=== PATIENT | male | born 1950 | race Caucasian/White ===

== ENCOUNTER 2017-05-29 10:10 | Inpatient (IN) | payer OTHER, MEDICARE ==
[2017-05-02 08:53] VITALS: Ht 177.8 cm; Wt 118.8 kg
--- NOTE | 2017-05-02 09:28 | PAT Medication Instructions ---
Service Date May 02, 2017. Current Home Medication List Aspirin (Aspirin Ec), 81 MG PO QAM Atorvastatin (Lipitor), 40 MG PO QAM Carvedilol (Carvedilol), 1 TAB PO BID Cholecalciferol (Vitamin D3), 1 CAP PO QAM Coenzyme Q10 (Ubidecarenone) (Co Q 10), 1 CAP PO BID Enalapril (Vasotec), 10 MG PO QAM Fish Oil (Bonifay-3), 1 CAP PO QAM Levothyroxine Sodium (Levothyroxine Sodium), 1 TAB PO QAM Nitroglycerin (Nitrostat), 0.4 MG UT PRN Ranitidine (Zantac), 300 MG PO BID Sennosides-Docusate Sodium (Stool Softener), 1 TAB PO BID Medication Instructions For Your Scheduled Surgery -Continue as directed: Nitroglycerin (Nitrostat), 0.4 MG UT PRN - Hold the following medications 2 weeks prior to surgery: Fish Oil (Bonifay-3), 1 CAP PO QAM Coenzyme Q10 (Ubidecarenone) (Co Q 10), 1 CAP PO BID - Hold the following medications the morning of surgery: Sennosides-Docusate Sodium (Stool Softener), 1 TAB PO BID Enalapril (Vasotec), 10 MG PO QAM Cholecalciferol (Vitamin D3), 1 CAP PO QAM - Take the following medications the morning of surgery with a sip of water: Ranitidine (Zantac), 300 MG PO BID Levothyroxine Sodium (Levothyroxine Sodium), 1 TAB PO QAM Carvedilol (Carvedilol), 1 TAB PO BID Aspirin (Aspirin Ec), 81 MG PO QAM Atorvastatin (Lipitor), 40 MG PO QAM - Take the following medications as scheduled the night before surgery: Ranitidine (Zantac), 300 MG PO BID Carvedilol (Carvedilol), 1 TAB PO BID Sennosides-Docusate Sodium (Stool Softener), 1 TAB PO BID If you have any questions please call us at [phone] or [phone] or [phone]
--- NOTE | 2017-05-02 10:05 | DIAGNOSTIC IMAGING REPORT ---
CHEST PREADMISSION(PA/LAT) CLINICAL HISTORY: PAT preoperative evaluation COMPARISON STUDY: No previous studies for comparison. FINDINGS: Mild cardiomegaly. Prior median sternotomy. Lungs are clear. Diaphragms smooth. IMPRESSION: Mild cardiomegaly. Otherwise negative study. The above report was generated using voice recognition software. It may contain grammatical, syntax or spelling errors. Electronically signed by: Viet Boston M.D. 05/02/2017 10:04 AM Dictated Date/Time: 05/02/2017 10:03 AM
[2017-05-02 10:47] LABS: PARTIAL THROMBOPLASTIN RATIO 1.2; PROTHROMBIN TIME (PATIENT) 10.2 SECONDS (9.0-12.0)
--- NOTE | 2017-05-25 23:13 | HISTORY & PHYSICAL EXAMINATION ---
DATE OF ADMISSION: 05/29/2017 CHIEF COMPLAINT: Bilateral knee pain and discomfort, left side greater than right. HISTORY OF PRESENT ILLNESS: A 66-year-old male who has had a long history of bilateral knee problems. He presents for surgical treatment of his knees. He said both of his knee scoped [address]hillon [address] Paulino in the past. He was actually scheduled to have knees replaced years ago and they found some heart disease on his workup and had 3-vessel bypass done in [place]. He has done well from this. He is currently asymptomatic from the cardiac standpoint and would like to proceed with a knee surgery. The left knee bothers him more than the right. He has constant pain. He has limited walking tolerance. The more he walks, the more it hurts. Pretty much limps all day long. PAST MEDICAL HISTORY: 1. Hypertension. 2. Elevated cholesterol. 3. Coronary artery disease, status post 3-vessel bypass 04/06/2016 at [place] at [facility]. 4. Hiatal hernia. 5. Hypothyroidism. PAST SURGICAL HISTORY: 1. Bilateral knee scopes in the past. 2. Shoulder surgery. 3. Right ankle arthrodesis for post-traumatic DJD. 4. Eye surgery. 5. Coronary bypass surgery x3 on 04/06/2016. ALLERGIES: None. CURRENT MEDICINES: 1. Aspirin 81 mg. 2. Atorvastatin 40 mg. 3. Enalapril 10 mg. 4. Levothyroxine 50 mcg a day. 5. Vitamin D3 5000 international units a day. 6. Carvedilol 6.25 mg a day. 7. Ranitidine 300 mg a day. 8. Aleve p.r.n.. 9. Docusate sodium 250 mg p.r.n. 10. Nitrostat p.r.n. SOCIAL HISTORY: A 66-year-old male patient from [place]. He is . One drink per day. FAMILY HISTORY: Negative for blood clots or heart disease. REVIEW OF SYSTEMS: Significant for his heart history. He has recently been seen by his educational resource coordinator Dr. Carlin Sharma at [facility] and cleared for surgery. Denies any current chest pain or any shortness of breath. No history of DVT or PE. He is on aspirin. PHYSICAL EXAMINATION: GENERAL: Reveals a healthy, pleasant, middle-aged male. He looks in pretty good health. HEENT: Benign. NECK: Supple. No lymphadenopathy. LUNGS: Clear to auscultation. HEART: Has a regular rate and rhythm. ABDOMEN: Soft, nontender, nondistended. EXTREMITIES: Grossly neurovascularly intact except as follows. Examination of both knees reveals the patient walks with a waddling gait. He has varus alignment to both knees. He has varus thrust with weightbearing on both sides. He has small knee effusion. Tender over the medial joint line bilaterally. Range of motion is pretty symmetrically at about 5 degrees short of full extension and 125 degrees of flexion. No instability. No pain with hip motion. X-RAYS: X-rays of both knees reveal advanced bilateral knee DJD. He has complete loss of his medial joint space. X-ray films are pretty similar on both sides. He has subchondral sclerosis. ASSESSMENT: A 66-year-old male with a history of knee arthroscopy in the past in both knees with advanced bilateral knee degenerative joint disease, left side more symptomatic than the right. He does have a history of bypass surgery over a year ago and has done well from this and currently asymptomatic. He would like to have his left knee replaced. He has been cleared by his educational resource coordinator. PLAN: We are going to take him to the operating room and do a left total knee replacement. The risks and benefits of this procedure were explained to the patient including but not limited to DVT, PE, , infection, neurologic injury, vascular injury, bleeding problems, pain, limited range of motion, stiffness, failure to relieve symptoms, incomplete relief of symptoms, need for further surgery in the future, fracture, leg length inequality, nerve palsy, etc. The patient understands and desires to proceed. Informed consent was obtained. We did talk to him about holding his enalapril the morning of surgery and he should take his carvedilol/beta anthony. He can continue on the baby aspirin.
[2017-05-29] VITALS (7 sets, daily range): BP systolic 129–163; BP diastolic 73–91; PULSE 74–84; TEMP 36.3–36.7; O2SAT 93–97
[~2017-05-29] VITALS: Ht 177.8 cm; Wt 118.8 kg
[~2017-05-29 10:10] MED LIST: ACETAMINOPHEN 500 MG TAB PO SCH; ASPI81TA28 PO; ATOR-24 PO; BUPIVACAINE 0.25% 30 ML VIAL ONE; BUPIVACAINE 0.5 % 5 MG/1 ML PF 10ML VIAL ONE; BUPIVACAINE LIPOSOME 266 MG, BUPIVACAINE/EPINEPHRINE INJ 50 ML, SODIUM CHLORIDE 0.9% PF... INFIL SCH; CARV12.52 PO; CEFAZOLIN 3000MG IV PUSH 15 ML IV SCH; CHOLCAP5 PO; COEN1CAP17 PO; DEXAMETHASONE SOD INJ 4 MG/ML VIAL ONE; ENAL10TA88 PO; EpINEphrine INJ 1MG/ML AMP 1 MG/ML AMP ONE; FAMOTIDINE 20 MG TAB PO SCH; GABAPENTIN 300 MG CAP PO SCH; LACTATED RINGER'S 1000ML IV SCH; LACTATED RINGER'S 500 ML IV SCH; LEVO50TA6 PO; METOCLOPRAMIDE HCL 10 MG TAB PO SCH; NTRGSL/4 UT; OMEG10007 PO; RANI300T2 PO; SCOPOLAMINE 1.5 MG TDSY TD SCH; SENNTAB23 PO; TRANEXAMIC ACID INJ 1,000 MG in SYRINGE 0 ML IV SCH
--- NOTE | 2017-05-29 10:50 | History & Physical Bridge Note ---
H&P Re-Evaluation Bridge Note: I have examined the patient, reviewed the History & Physical and in the interval since the performance of the History & Physical I have noted the following changes of clinical significance: No changes noted
[2017-05-29] MEDS ORDERED: MIDAZOLAM HCL 1 MG/ML 2ML VIAL ONE (12:06)
[2017-05-29] MEDS ORDERED: FENTANYL CITRATE INJ 50 MCG/1 ML 2 ML VIAL ONE (12:06)
[2017-05-29] MEDS ORDERED: EpHEDrine SULFATE INJ 50 MG/ML AMP IV PRN (12:45)
[2017-05-29] MEDS ORDERED: ONDANSETRON INJ 2 MG/ML 2 ML VIAL IV PRN ×2 (12:45→15:45)
[2017-05-29] MEDS ORDERED: FENTANYL CITRATE INJ 50 MCG/1 ML 2 ML VIAL IV PRN (12:45)
[2017-05-29] MEDS ORDERED: ATROPINE SULFATE 0.1 MG/ML 5ML SYR IV PRN (12:45)
[2017-05-29] MEDS ORDERED: BACITRACIN 50000 UNIT VIAL ONE (13:07)
[2017-05-29] MEDS ORDERED: SODIUM CHLORIDE 0.9% PF 50 ML VIAL ONE (13:07)
[2017-05-29] MEDS ORDERED: BUPIVACAINE/EPINEPHRINE 0.25% 1:200,000 30 ML VIAL ONE (13:07)
[2017-05-29] MEDS ORDERED: BUPIVACAINE LIPOSOME 1/3% 266 MG/20 ML VIAL INFIL ONE (13:07)
[2017-05-29] MEDS ORDERED: PROPOFOL IV EMULSION 10 MG/ML 20 ML VIAL IV ONE ×2 (14:25→14:26)
--- NOTE | 2017-05-29 15:32 | [facility] Post Operative Brief Note ---
Immediate Operative Summary Operative Date May 29, 2017. Pre-Operative Diagnosis Advanced Left Knee Degenerative Joint Disease Post-Operative Diagnosis Advanced Left Knee Degenerative Joint Disease Procedure(s) Performed Left Total Knee Arthroplasty Surgeon Dr. Montilla Adult Secondary Education Instructor Surgeon(s) MACIEJ Vinson Estimated Blood Loss 50 mL Findings Left Knee DJD Fluids (cc crystalloids) 1800cc Specimens A. Left Knee Bone and Tissue Drains None Anesthesia Spinal Complication(s) None Disposition Recovery Room / PACU
[2017-05-29] MEDS ORDERED: METOCLOPRAMIDE HCL INJ 5 MG/ML 2 ML VIAL IV PRN (15:45)
[2017-05-29] MEDS ORDERED: MAGNESIUM HYDROXIDE SUSP 30 ML UDC PO PRN (15:45)
[2017-05-29] MEDS ORDERED: NITROGLYCERIN 0.4 MG SL PER TAB CHARGE UT PRN (15:45)
[2017-05-29] MEDS ORDERED: HYDROmorphone INJ 0.5 MG/0.5 ML SYR IV PRN (15:45)
[2017-05-29] MEDS ORDERED: BISACODYL 10 MG SUPP PR PRN (15:45)
[2017-05-29] MEDS ORDERED: SILVER SULFADIAZINE 1% CR 50 GM JAR EXT PRN (15:45)
[2017-05-29] MEDS ORDERED: TRANEXAMIC ACID INJ 1,000 MG in SODIUM CHLORIDE 0.9% 100ML 100 ML IV SCH (15:45)
[2017-05-29] MEDS ORDERED: OXYCODONE HCL IR 5 MG TAB (IMMEDIATE RELEASE) PO PRN (15:45)
[2017-05-29] MEDS ORDERED: ZOLPIDEM TARTRATE 5 MG TAB PO PRN (15:45)
[2017-05-29] MEDS ORDERED: ALUMINUM/MAGNESIUM/SIMETH (MAALOX MAX) 30 ML UDC PO PRN (15:45)
[2017-05-29] MEDS ORDERED: TAMSULOSIN HCL 0.4 MG CAP PO PRN (15:45)
[2017-05-29] MEDS: CHECK SCOPOLAMINE PATCH PLACEMENT SCH ×2 (16:00→23:47)
--- NOTE | 2017-05-29 16:02 | DIAGNOSTIC IMAGING REPORT ---
L KNEE 1 OR 2 VIEWS ROUTINE CLINICAL HISTORY: AP/LATERAL IN PACU LEFT KNEE joint replacement COMPARISON: None. DISCUSSION: Total left knee arthroplasty. Good contact between prosthetic and underlying bone. Surgical drains are in position. Expected soft tissue postoperative change IMPRESSION: Anatomic alignment status post total left knee arthroplasty The above report was generated using voice recognition software. It may contain grammatical, syntax or spelling errors. Electronically signed by: Viet Boston M.D. 05/29/2017 4:01 PM Dictated Date/Time: 05/29/2017 4:00 PM
--- NOTE | 2017-05-29 16:03 | Anesthesiology Progress Note ---
Anesthesia Post Op Note Date & Time May 29, 2017 at 16:03 Vital Signs Pain Intensity: 0 Vital Signs Past 12 Hours Date Time Temp Pulse Resp B/P (MAP) Pulse Ox O2 Delivery O2 Flow Rate FiO2 05/29/17 16:00 36.7 05/29/17 15:51 134/68 05/29/17 15:48 79 16 98 05/29/17 15:48 78 16 05/29/17 15:46 141/77 05/29/17 15:43 76 15 05/29/17 15:43 76 15 98 05/29/17 15:41 140/80 05/29/17 15:38 80 15 05/29/17 15:38 84 15 100 05/29/17 15:36 123/98 05/29/17 15:34 127/74 05/29/17 15:33 36.6 77 16 127/74 97 Nasal Cannula 2 05/29/17 15:33 78 05/29/17 15:33 78 98 05/29/17 10:58 36.5 79 18 163/91 97 Room Air Notes Mental Status: alert / awake / arousable, participated in evaluation Pt Amnestic to Procedure: Yes Nausea / Vomiting: adequately controlled Pain: adequately controlled Airway Patency, RR, SpO2: stable & adequate BP & HR: stable & adequate Hydration State: stable & adequate Neuraxial Anesthesia: was administered, sensory block is resolving Anesthetic Complications: no major complications apparent
[2017-05-29] MEDS: D5W AND 1/2NSS + 20MEQ KCL 1,000 ML IV SCH (17:36)
[2017-05-29] MEDS: KETOROLAC TROMETHAMINE 15 MG/ML VIAL IV. SCH ×2 (17:51→23:47)
[2017-05-29] MEDS: FERROUS GLUCONATE 324 MG TAB PO SCH (17:52)
[2017-05-29] MEDS: CARVEDILOL 12.5 MG TAB PO SCH (20:55)
[2017-05-29] MEDS: TAPENTADOL ER 50 MG TABCR PO SCH (20:55)
[2017-05-29] MEDS: ASPIRIN 325 MG ECTAB PO SCH (20:55)
[2017-05-29] MEDS: DOCUSATE SODIUM/SENNA 50/8.6MG TAB PO SCH (20:56)
[2017-05-29] MEDS: RANITIDINE HCL 150 MG TAB PO SCH (20:56)
[2017-05-29] MEDS ORDERED: NON-FORMULARY MEDICATION (Coenzyme Q10 (Ubidecarenone) (Co Q 10) 1 CAP) PO SCH (21:00)
[2017-05-29] MEDS ORDERED: DOCUSATE SODIUM 100 MG CAP PO SCH (21:00)
[2017-05-29] MEDS ORDERED: SENNA 8.6 MG TAB PO SCH (21:00)
[2017-05-29] MEDS ORDERED: TRANEXAMIC ACID INJ 1,000 MG in SYRINGE 0 ML IV SCH (22:00)
[2017-05-29] MEDS: CEFAZOLIN IV 2,000 MG in SYRINGE 0 ML IV SCH (22:07)
[2017-05-29] MEDS: ACETAMINOPHEN 500 MG TAB PO SCH (22:08)
--- NOTE | 2017-05-29 22:58 | OPERATIVE REPORT ---
DATE OF OPERATION: 05/29/2017 SURGEON: Cale Montilla MD. PAINTER DRUM: MACIEJ Paul. PREOPERATIVE DIAGNOSIS: Left knee degenerative joint disease. POSTOPERATIVE DIAGNOSIS: Same. PROCEDURE PERFORMED: Left cemented posterior stabilized total knee arthroplasty. COMPLICATIONS: None. ESTIMATED BLOOD LOSS: 50 mL. FLUID REPLACEMENT: 1800 mL crystalloid fluid replacement. TOURNIQUET TIME: 64 minutes at 300 mmHg. ANESTHESIA: Spinal with adductor canal block. DRAINS: None. SPECIMENS: Left knee sent for pathology. OPERATIVE INDICATIONS: The patient is a 66-year-old very active gentleman who has had a long history of bilateral knee pain and discomfort. He has been through extensive conservative care elsewhere. He has had both of his knees scoped in the past by other physicians. Over the years, he developed increased pain and discomfort, unresponsive to conservative care. The left knee is bothered more than the right. He would like to proceed with operative treatment. OPERATIVE FINDINGS: Operative findings revealed advanced left knee DJD. He had extensive grade 4 changes of the medial femoral condyle and medial tibial plateau. He had a varus deformity to his knee. He had a large knee joint effusion. OPERATIVE IMPLANTS: Operative implants consisted of: 1. Biomet Vanguard size 72.5 left posterior stabilized femoral component. 2. Biomet size 79 tibial tray. 3. A 12 mm posterior stabilized polyethylene insert. 4. A 34 x 8.5 all poly patella. OPERATIVE PROCEDURE: The patient taken to the operating room, identified and placed on the operating table in supine position. All contact areas were appropriately padded. IV antibiotics were provided by anesthesia team. A spinal anesthetic and adductor canal block had been provided in the holding area. Taylor catheter was placed in sterile fashion. A left thigh tourniquet was then placed and left lower extremity was then prepped and draped in the usual sterile fashion. Left leg was elevated and exsanguinated with Esmarch and tourniquet was placed at 300 mmHg. An anterior approach of the left knee was then performed through a longitudinal incision centered over the patella. Sharp dissection was carried out through the subcutaneous tissues down to the level of the extensor mechanism. Medial parapatellar arthrotomy incision was made. Some subperiosteal dissection was carried out medially. The fat pad was resected from beneath the patellar tendon. The lateral patellofemoral ligament was released. The patella was everted, and the knee was flexed. The osteophytes were taken off the distal femur. The ACL and PCL were then released from the distal femur and the tibia subluxated anteriorly. The external tibial alignment jig was then placed in the anterior face of the tibia and adjusted 14 mm medially. Proximal tibia cut was made to remove about 1 mm or 2 of bone from the most deficient aspect of the medial tibial plateau. Some osteophytes were taken off medial and posteromedially. Tibia was sized to a size 79. Attention was then drawn to the femur. The distal femur was entered with a sharp drill. Intramedullary canal was suctioned. A left 6-degree valgus cutting guide was placed. Distal femoral cutting block was pinned in place. Distal femoral cut was made to take an additional 3 mm of bone off the distal femur. The femur was then sized to a size 72.5. We did downsize this slightly. The AP cutting block was pinned parallel to the epicondylar axis, which was 3 degrees of external rotation. The anterior cut, anterior chamfer cut, posterior cut, posterior chamfer cuts were made. Box cutting guide was placed and adjusted slightly lateral and the box cut was made. The knee was flexed. The remnants of the medial and lateral meniscus were excised. The osteophytes were taken off the posterior aspect of the femur. A trial femoral component was placed. Tibial tray was pinned in maximum external rotation and drill and stem punch were used to create defect in the proximal tibia for the tibial tray. The knee was then trialed and the 12 mm insert fit most appropriately. Attention was then drawn to the patella. The patella was cleaned of all soft tissues. Patella thickness measured 21 mm and was cut down to 13. It was sized to a size 34 patella. Lug holes were drilled for a 34 patella. Lateral osteophyte was removed. Patella button was placed. Knee was taken through range of motion and the patella tracked nicely with no thumbs test. Attention was then drawn toward placement of the permanent components. All trial components were removed. Bone plug was placed in the distal femur to limit blood loss. A double batch of Palacos G cement was mixed. A left size 72.5 posterior stabilized femoral component, size 79 tibial tray, a 12 mm posterior stabilized polyethylene insert, and a 34 x 8.5 all poly patella were then cemented in place. Knee was brought out into full extension until cement hardened. A final cement check was then performed. The patient did receive 1 gram of tranexamic acid. I did inject locally with 100 mL of a combination of 20 mL of Exparel, 30 mL of normal saline, and 50 mL of 0.25% Marcaine with epinephrine. The tourniquet was then let down for a tourniquet time 64 minutes. Hemostasis was assured with use of electrocautery. The extensor mechanism was then closed with a combination of #1 PDS suture and #1 Vicryl suture in a [id number] fashion. Extensor mechanism was checked and found to be intact. Subcutaneous tissues were then closed with 2-0 Dexon suture in a buried interrupted fashion. Skin was closed with skin naila. The leg was then cleaned and dried and a sterile dressing of Xeroform, 4 x 4, sterile cast padding and an Richard bandage were applied. The patient transferred to the recovery room in stable condition. The patient tolerated the procedure without complications. All needle and sponge counts were correct at the end of the operation. I attest to the content of the Intraoperative Record and any orders documented therein. Any exception s are noted below.
[2017-05-30] VITALS (9 sets, daily range): BP systolic 112–151; BP diastolic 72–91; PULSE 72–111; TEMP 36.3–37.2; O2SAT 93–96
[2017-05-30] MEDS: D5W AND 1/2NSS + 20MEQ KCL 1,000 ML IV SCH ×2 (03:15→12:18)
[2017-05-30] MEDS: LEVOTHYROXINE 50 MCG TAB PO SCH (05:55)
[2017-05-30] MEDS: ACETAMINOPHEN 500 MG TAB PO SCH ×3 (05:55→20:54)
[2017-05-30] MEDS: KETOROLAC TROMETHAMINE 15 MG/ML VIAL IV. SCH ×2 (05:55→12:18)
[2017-05-30] MEDS: CEFAZOLIN IV 2,000 MG in SYRINGE 0 ML IV SCH (05:56)
[2017-05-30 07:18] LABS: HEMATOCRIT 36.3 % (42-52); MEAN CELL VOLUME 92.4 fL (80-100); MEAN CORPUSCULAR HEMOGLOBIN 31.6 pg (25-34); MEAN CORPUSCULAR HGB CONC 34.2 g/dl (32-36); MEAN PLATELET VOLUME 10.3 fL (7.4-10.4); PLATELET COUNT 156 K/uL (130-400); RED BLOOD COUNT 3.93 M/uL (4.7-6.1)
[2017-05-30 07:52] LABS: BUN/CREATININE RATIO 15.9 (10-20); CALCIUM 8.2 mg/dl (8.5-10.1); CREATININE 1.57 mg/dl (0.60-1.40); POTASSIUM 4.4 mmol/L (3.5-5.1)
[2017-05-30] MEDS: CHECK SCOPOLAMINE PATCH PLACEMENT SCH ×2 (08:11→15:52)
[2017-05-30] MEDS: RANITIDINE HCL 150 MG TAB PO SCH ×2 (08:52→20:54)
[2017-05-30] MEDS: FERROUS GLUCONATE 324 MG TAB PO SCH ×3 (08:52→17:44)
[2017-05-30] MEDS: DOCUSATE SODIUM/SENNA 50/8.6MG TAB PO SCH ×2 (08:52→20:54)
[2017-05-30] MEDS: MULTIVITAMIN TAB PO SCH (08:52)
[2017-05-30] MEDS: CARVEDILOL 12.5 MG TAB PO SCH ×2 (08:52→20:55)
[2017-05-30] MEDS: ASPIRIN 325 MG ECTAB PO SCH ×2 (08:52→20:54)
[2017-05-30] MEDS: PANTOprazole SOD 40 MG TAB PO SCH (08:53)
[2017-05-30] MEDS: ENALAPRIL MALEATE 10 MG TAB PO SCH (08:53)
[2017-05-30] MEDS: ATORVASTATIN 40 MG TAB PO SCH (08:53)
[2017-05-30] MEDS: CHOLECALCIFEROL 1000 INTER.UNIT TAB PO SCH (08:54)
[2017-05-30] MEDS: TAPENTADOL ER 50 MG TABCR PO SCH ×2 (08:57→20:55)
--- NOTE | 2017-05-30 13:26 | PROGRESS NOTE ---
DATE: 05/30/2017 SUBJECTIVE: A 66-year-old gentleman postop day #1 from a left knee replacement. He is doing well. Pain has been controlled. No chest pain or shortness of breath. Not feeling dizzy or lightheaded. OBJECTIVE: VITAL SIGNS: Temperature 36.5. Vital signs stable. GENERAL: Physical examination reveals a pleasant, middle-aged male. He is sitting up at his bedside chair and looks pretty comfortable. LUNGS: Clear to auscultation. HEART: Regular rate and rhythm. ABDOMEN: Soft, nontender, and nondistended. EXTREMITIES: Grossly neurovascularly intact except as follows: Examination of the left lower extremity reveals the dressing to be in place. There is some bloody drainage in the front of his dressing. He can dorsiflex and plantarflex his foot appropriately. He is neurologically intact. LABORATORY DATA: Hemoglobin 12.4 and hematocrit 36.3. Electrolytes reveal creatinine of 1.57. The rest of electrolytes are stable. ASSESSMENT: A 66-year-old gentleman postop day #1 from a left knee replacement, doing pretty well. Pain is controlled. He is neurologically intact. Creatinine is bit elevated. PLAN: 1. DVT prophylaxis including thigh-high TEDs, SCDs, and aspirin twice a day. 2. PT/OT. Weightbear as tolerated. Left total knee protocol. 3. Pain control. Doing well with current pain regimen. 4. Elevated creatinine. We are going to stop the Toradol and we will follow his creatinine. I encouraged p.o. hydration. 5. Disposition: Plan to discharge to home likely with some home health once adequately recovered.
--- NOTE | 2017-05-30 14:20 | Anesthesiology Progress Note ---
Anesthesia Post Op Note Date & Time May 30, 2017 at 14:20 Vital Signs Vital Signs Past 12 Hours Date Time Temp Pulse Resp B/P (MAP) Pulse Ox O2 Delivery O2 Flow Rate FiO2 05/30/17 11:33 36.5 76 16 112/72 (85) 96 Room Air 05/30/17 09:50 85 05/30/17 07:55 Room Air 05/30/17 07:53 96 Room Air 05/30/17 07:51 36.3 72 18 122/78 (93) 96 Room Air 05/30/17 02:49 36.6 77 16 121/79 (93) 94 Room Air Notes Mental Status: alert / awake / arousable, participated in evaluation Pt Amnestic to Procedure: Yes Nausea / Vomiting: adequately controlled Pain: adequately controlled Airway Patency, RR, SpO2: stable & adequate BP & HR: stable & adequate Hydration State: stable & adequate Neuraxial Anesthesia: was administered, sensory block resolved Anesthetic Complications: no major complications apparent
[2017-05-30] MEDS ORDERED: ASPEC325 PO (21:41)
[2017-05-30] MEDS ORDERED: RXC5 PO (21:41)
[2017-05-30] MEDS ORDERED: ACET-24 PO (21:41)
--- NOTE | 2017-05-30 21:45 | Discharge Instructions ---
Discharge Instructions Date of Service May 30, 2017. Admission Reason for Admission: Left Knee Degenerative Joint Disease Discharge Discharge Diagnosis / Problem: Left Knee Replacement Discharge Goals Goal(s): Decrease discomfort, Improve function, Increase independence, Improve disease control, Therapeutic intervention Activity Recommendations Activity Limitations: per Instructions/Follow-up section Weightbearing Status: Left weightbearing . Instructions / Follow-Up Instructions / Follow-Up ACTIVITY RECOMMENDATIONS: Physical Therapy: * You will go to physical therapy three times each week for four to six weeks after your surgery in order to regain your knee range of motion and to retrain your knee to work properly. * It is just as important to make sure you are getting your knee perfectly straight as it is to regain your knee bend. * Taking a pain pill an hour before therapy can help you have a more productive and comfortable therapy session. Home Exercise: * You were shown a series of exercises (heel props, heel slides, etc.) in the hospital. Do these exercises three to four times each day including the exercises you were shown in physical therapy. Walking: * Get up and walk several times each day. For the first four weeks, try not to stand or walk for more than one hour at a time. If you do stand or walk for more than one hour, you will not hurt anything, but your knee and leg will likely swell. * As you feel comfortable, you may change from the walker or crutches to a cane and then to independent walking. MEDICATIONS: New Medicine: * You will likely be taking one or more of these medications: 1. Oycodone - A quick and shorter-acting pain medication. Take one to two tablets every four to six hours to lessen your pain. 2. Aspirin - Thins your blood to lessen the chance of forming a blood clot. * The most common side effects of pain medicine and iron are nausea and constipation. If nausea or constipation is too much of a problem or if you have any questions about your new medicines or doses, call [facility] at . We will try to help you manage these issues. VERY IMPORTANT TO READ AND REVIEW" Pain: * The immediate post-operative period after knee replacement surgery is often quite painful. * You are given a prescription for pain medicine. You should take it, as directed, when you need it, especially before physical therapy and before going to bed. Pain that interferes with sleep is very common and can last several months. * You will likely need pain medicine for the first four to six weeks. It will not stop all of the pain. The pain will lessen and as you feel better, you may change to milder pain medicine such as Tylenol. * The most common side effects of pain medicine are nausea and constipation, so don't take more than you need. SPECIAL CARE INSTRUCTIONS: TEDs/Elastic Stockings: * The white elastic stockings help limit swelling and prevent blood clots from forming in your legs. The more you wear them, the more they work. * Wear them for six weeks after knee replacement surgery and four weeks after partial knee replacement. Prevention of Infection: * Take antibiotics one hour before any dental cleaning, dental work, urological procedure, gastrointestinal procedure or any invasive surgery in order to prevent your new joint from getting infected. * You may get the antibiotics from the doctor performing the procedure or you may call our office at before and we will call in a prescription to the pharmacy of your choice. Things to Watch For: * Drainage from the incision site that occurs more than one week after your surgery. * Severely increased knee/leg pain or swelling. * Increased redness at the incision site. * Fever above 102 degrees Fahrenheit. * Unusual chest pain or shortness of breath. * Unusual pain or burning with urination. Call [facility] at with any of the above problems or if you have any questions about your medicines or recovery. FOLLOW UP VISIT: Make an appointment to see your doctor for approximately two weeks after surgery for a progress check and staple removal by calling the office at . Current Hospital Diet Patient's current hospital diet: Regular Diet Discharge Diet Recommended Diet: Regular Diet Procedures Procedures Performed: Left Total Knee Arthroplasty Pending Studies Studies pending at discharge: no Medical Emergencies . Who to Call and When: Medical Emergencies: If at any time you feel your situation is an emergency, please call [phone] immediately. . Non-Emergent Contact Non-Emergency issues call your: Surgeon . "Provider Documentation" section prepared by Cale Montilla. . VTE Core Measure Inpt VTE Proph given/why not?: Other Anticoagulation, T.E.D. Stockings, SCD's
[2017-05-31] MEDS: CHECK SCOPOLAMINE PATCH PLACEMENT SCH ×3 (00:40→15:45)
[2017-05-31] MEDS: ACETAMINOPHEN 500 MG TAB PO SCH ×4 (05:22→22:50)
[2017-05-31] MEDS: LEVOTHYROXINE 50 MCG TAB PO SCH (05:22)
[2017-05-31 05:23] VITALS: BP 126/79; PULSE 94; TEMP 36.7; O2SAT 95
[2017-05-31 05:35] LABS: BUN/CREATININE RATIO 15.8 (10-20); CALCIUM 8.6 mg/dl (8.5-10.1); CREATININE 1.25 mg/dl (0.60-1.40); POTASSIUM 4.2 mmol/L (3.5-5.1)
[2017-05-31 07:10] VITALS: BP 145/88; PULSE 85; TEMP 36.7; O2SAT 94
[2017-05-31] MEDS: FERROUS GLUCONATE 324 MG TAB PO SCH ×3 (07:45→17:45)
[2017-05-31] MEDS: MULTIVITAMIN TAB PO SCH (07:45)
[2017-05-31] MEDS: PANTOprazole SOD 40 MG TAB PO SCH (07:45)
[2017-05-31] MEDS: CHOLECALCIFEROL 1000 INTER.UNIT TAB PO SCH (07:46)
[2017-05-31] MEDS: ENALAPRIL MALEATE 10 MG TAB PO SCH (07:46)
[2017-05-31] MEDS: ATORVASTATIN 40 MG TAB PO SCH (07:46)
--- NOTE | 2017-05-31 08:19 | PROGRESS NOTE ---
DATE: 05/31/2017 SUBJECTIVE: A 66-year-old gentleman postop day 2 from a left knee replacement. He is doing pretty well. Not really having much pain. Fadumo navarro was a little bit confused overnight. Denies any chest pain or shortness of breath. He says he feels ready to go home. OBJECTIVE: VITAL SIGNS: Temperature 36.7. Vital signs stable. PHYSICAL EXAMINATION: GENERAL: Reveals a pleasant, middle-aged male. He is sitting up in his bedside chair and looks pretty comfortable. EXTREMITIES: Examination of the left leg reveals the dressing to be clean, dry and intact. Fairly minimal swelling. No drainage. He is neurologically intact. LABORATORY DATA: Electrolytes are stable. Creatinine improved to 1.25. ASSESSMENT: A 66-year-old gentleman postop day 2 from left knee replacement, doing pretty well. He is a little bit confused, likely hospital-induced psychosis related to anesthesia, pain medicine and foreign environment. He is really not having much pain. His creatinine is improved, likely resolved of hydration status. PLAN: 1. DVT prophylaxis including thigh-high TEDs, SCDs, and aspirin twice a day. 2. PT/OT. Weightbearing as tolerated. Left total knee protocol. 3. Pain control. We are going to limit narcotics. We could put him back on a little more Toradol if needed, but we will see how he does as he is pretty pain free now. 4. Medical management, no new medical issues. We will hold his narcotics to avoid confusion. 5. Disposition: Plan to discharge to home once medically stable and accepted from rehab standpoint.
[2017-05-31] MEDS: DOCUSATE SODIUM/SENNA 50/8.6MG TAB PO SCH ×2 (09:11→20:36)
[2017-05-31] MEDS: CARVEDILOL 12.5 MG TAB PO SCH ×2 (09:11→20:35)
[2017-05-31] MEDS: RANITIDINE HCL 150 MG TAB PO SCH ×2 (09:11→20:36)
[2017-05-31] MEDS: ASPIRIN 325 MG ECTAB PO SCH ×2 (09:11→20:35)
[2017-05-31 15:08] VITALS: BP 129/78; PULSE 94; TEMP 36.7; O2SAT 93
[2017-05-31] MEDS ORDERED: LORAZEPAM INJ 0.5 MG in SYRINGE 0.25 ML IV PRN (16:15)
[2017-05-31] MEDS ORDERED: LORAZEPAM INJ 2 MG in SYRINGE 1 ML IV ONE (17:30)
--- NOTE | 2017-05-31 17:56 | Critical Care Progress Note ---
Critical Care Progress Note Date of Service May 31, 2017. Critical Care Progress Note Responded to a code raymond in room 321. Patient was Jose Roberto Laguerre, a 66-year-old patient of Dr. Montilla who had a left total knee arthroplasty 05/29/17. Patient was tremulous and hallucinating when I arrived in the room and was uncooperative. He was sitting on the edge of the bed at the foot of the bed and was at risk for falling. I engage the patient in conversation. He had flight of ideas and at times was not coherent in speech. I was able to establish a relationship with him and distract him from his ailments. Due to history of 3-4 gins per night as reported by the disability hearing officer liaison, I suggested instituting the alcohol withdrawal protocol. 2 mg of IV lorazepam was administered in a peripheral IV in the left hand. We did have difficulty with flushing that peripheral IV. The IV team was called and they obtained a 20- gauge peripheral IV in the right hand for future use. After 6-7 minutes, patient became drowsy and we were able to get him the bed. Vital signs required and patient had a SaO2 of 95% and a heart rate of 102. We are unable to obtain and an NIBP secondary to patient movement and being uncooperative. In discussion with the nursing staff, two calls have been placed to Dr. Montilla who responded promptly. Security was released and nurses assumed full care of the patient. I suggested to Alisa Gomes RN for Dr. Montilla be called again with an update that patient had been administered 2 mg of lorazepam and suggested alcohol withdrawal protocol be initiated. I also suggested that they ask him if he would like a medical consult for further management of the alcohol withdrawal. I further suggested that if they continue to have problems with the patient due to the withdrawal that they should ask Dr. Montilla if he would like the patient transferred to the intensive care unit for further management including medications such as Precedex. Patient appeared to be calm and cooperative. At that time I left the floor and gave Dr. Flannery and update that this patient may need critical care services.
[2017-05-31] MEDS ORDERED: GABAPENTIN 600 MG TAB PO SCH (19:00)
[2017-05-31 19:20] LABS: BASO % 0.2 %; BASO ABS # 0.02 K/uL (0-0.2); EOS % 0.6 %; HEMATOCRIT 30.3 % (42-52); IG% 0.3 %; MEAN CELL VOLUME 92.7 fL (80-100); MEAN CORPUSCULAR HEMOGLOBIN 32.1 pg (25-34); MEAN PLATELET VOLUME 10.2 fL (7.4-10.4); MONO % 15.7 %; NEUT % 70.2 %; PLATELET COUNT 139 K/uL (130-400); RED BLOOD COUNT 3.27 M/uL (4.7-6.1); WHITE BLOOD COUNT 12.32 K/uL (4.8-10.8)
--- NOTE | 2017-05-31 19:20 | Medical Consult ---
Consultation Note Date of Service May 31, 2017. Consultation Note ams, combative, agitation, possible alcohol withdrawal, or acute intracranial disease, metabolic encephalopathy, ekg showed V4, 5 , 6 St more depression, transfer to tele, Ce and Tn , ddimer x1 alcohol withdrawal protocol, head CT, etc dictated [id number]
[2017-05-31] MEDS ORDERED: MULTI-VITAMIN INFUSION INJ 10 ML, THIAMINE HCL INJ 100 MG, FoLIC ACID INJ 1 MG in SODIU... IV ONE (19:30)
[2017-05-31 19:35] LABS: COMPLETE YES; MEAN CORPUSCULAR HGB CONC 34.7 g/dl (32-36)
[2017-05-31 19:38] LABS: PARTIAL THROMBOPLASTIN RATIO 1.3; PROTHROMBIN TIME (PATIENT) 10.5 SECONDS (9.0-12.0)
[2017-05-31] MEDS ORDERED: GABAPENTIN 1200MG LOADING DOSE PO SCH (20:00)
[2017-05-31 20:09] LABS: ALB/GLOB RATIO 0.9 (0.9-2); BUN/CREATININE RATIO 14.2 (10-20); CALCIUM 8.9 mg/dl (8.5-10.1); CREATININE 1.32 mg/dl (0.60-1.40); POTASSIUM 3.8 mmol/L (3.5-5.1)
--- NOTE | 2017-05-31 20:10 | HISTORY & PHYSICAL EXAMINATION ---
DATE OF ADMISSION: 05/31/2017 This is a level 3 consultation. REASON FOR CONSULTATION: Combative mental status changes and possible alcohol withdrawal. PHYSICIAN REQUESTING CONSULTATION: Cale Montilla MD. HISTORY OF PRESENT ILLNESS: The patient is a 66-year-old white male with a significant past medical history of hypertension, dyslipidemia, CAD, CABG, hiatal hernia, hypothyroidism who was admitted to Dr. Montilla's service because of left knee discomfort. The patient has a long history of bilateral knee problems, was admitted to Dr. Montilla's service on 05/29/2017 for the knee surgeries. The patient had a left total knee replacement, which was done on 05/29/2017, 2 days ago. At [address] was called. The patient was in tremendous, hallucination, and the ICU service arriving to the room. Per report, patient was uncooperative. He was sitting on the edge of the bed and was in risk of falling. He has flight of ideas and was not coherent in speech. Per report, the patient has history of 3-4 Gins, which is alcohol, per night as reported by psychiatry Liaison, Per reported was drowsy but vital signs were stable except heart rate up to 102. The patient was thought to have possible alcohol withdrawal. Gave 2 mg of Ativan for possible alcohol withdrawal. Primary team was notified. I was called to see the patient stat. When I interviewed with the patient, he is awakable, but drowsy, anxious, tremor. Know his name and birthday; however, not able to report where he is at currently. Speech is coherent, moves upper and lower extremities. denies chest pain, palpitation, denies cough , sputum, and sob, further detailed review of systems not able to obtain. I did call to his . confirmed me about the last drink possible was 4 or 5 days ago and long-term alcohol intake. Never had alcohol withdrawal before. ALLERGIES: No known drug allergies. PAST MEDICAL HISTORY: Include hypertension, dyslipidemia, CAD, CABG in [facility] and [facility], had a hiatal hernia and hypothyroidism. PAST SURGICAL HISTORY: Include bilateral knee scope in the past, shoulder surgeries, right ankle procedures, eye surgeries and CABG x3 in 2017. MEDICATIONS: Currently taking includes aspirin 81 mg p.o. daily, atorvastatin 40 mg p.o. at bedtime, enalapril 10 mg p.o. daily, levothyroxine 50 mcg p.o. daily, vitamin D3 5000 international units p.o. daily, Coreg 6.25 mg p.o. daily, ranitidine 300 mg p.o. daily and Aleve as needed, docusate 250 mg p.o. p.r.n., Nitrostat p.r.n. SOCIAL HISTORY: He is and he drinks 1-2 Gins a day for long period, denied tobacco abuse disorder, denied illicit drug abuse. FAMILY HISTORY: Negative for heart disease and blood clot. REVIEW OF SYSTEMS: Please see HPI, otherwise 14 points organ system review were negative. LABORATORY STUDIES: Yesterday WBC 12, hemoglobin 12, platelet 156. PT/INR was 10/. Sodium 134, potassium 106, BUN 20, creatinine 1.25 from yesterday 19/07.57. Blood glucose 114, calcium 8.6. IMAGING STUDIES: Chest x-ray on 05/02/2017, mild cardiomegaly, otherwise negative studies. ASSESSMENT AND PLAN: A 66-year-old white male with the problems below: 1. Left knee chronic pain, possible osteoarthritis, had left total knee arthroplasty today by Dr. Montilla. This conditions will be taken care by Dr. Montilla and the primary team. For the pain control, PT, OT, DVT prophylaxis, rehab and discharge plan will be per primary team. 2. Confused, combative, agitation: etiology include alcohol withdrawal or some other medical conditions such as hyperthyroidism because he has history of hypothyroidism and is on levothyroxine, illicit drug abuse, acute intracranial disease, metabolic encephalopathy, 3. New EKG changes with V3-6 ST depression, which is new, 4. History of hypertension, dyslipidemia, coronary artery disease, coronary artery bypass grafting, hiatal hernia and hypothyroidism. PLAN: Like I mentioned differential diagnoses include alcohol withdrawal, illicit drug intoxication, hypothyroidism, acute intracranial disease, I will transfer patient to tele monitor, check head CT, stat to rule out acute disease, check a TSH, ammonia level. Start alcohol withdrawal protocol, banana bag, Ativan as needed per protocol. Continue possible monitoring, 1:1 sitter. 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 She understands and agreed. Thank you for the chance to involve in the care of the patient. We will continue to follow up. NORMA
[2017-05-31 20:15] VITALS: BP 158/73; PULSE 108; TEMP 37.4; O2SAT 95
--- NOTE | 2017-05-31 20:25 | DIAGNOSTIC IMAGING REPORT ---
CT OF THE HEAD WITHOUT CONTRAST CLINICAL HISTORY: AMS and combative, want to rule out acute disease. COMPARISON STUDY: No previous studies for comparison. CT DOSE: 1228.53 mGy.cm TECHNIQUE: Helical axial images of the head were obtained without IV contrast. Automated exposure control was utilized for the study. A dose lowering technique was utilized adhering to the principles of ALARA. FINDINGS: Exam is mildly compromised by motion artifact. No acute intracranial hemorrhage, midline shift or mass effect is present. Ventricular system is unremarkable. Basilar cisterns are patent. There are no extra-axial collections. Extensive white matter hypodensity suggests small vessel disease. There are no findings to suggest acute dural sinus thrombosis or acute territorial infarct. There is extensive intracranial vascular calcification. No calvarial fracture is present. Note is made of a 2 mm radiodensity along the anterior aspect of the right globe. Note is made of a 2.1 cm white matter hypodensity within the left parietal lobe. IMPRESSION: 1. No acute intracranial findings. 2. Study mildly compromised by motion artifact. 3. 2.1 cm left parietal lobe white matter hypodensity which likely reflects small vessel disease. An age indeterminate infarct could appear similar although is considered less likely. 4. White matter hypodensity which suggests extensive small vessel disease. 5. 2 mm radiodensity along the anterior aspect of the right globe. This could reflect a metallic foreign body or postsurgical material. This could be correlated with history as this may represent a contraindication to MRI. 6. 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 Electronically signed by: Brian Waddell M.D. 05/31/2017 8:23 PM Dictated Date/Time: 05/31/2017 8:15 PM
[2017-05-31] MEDS: LORAZEPAM 1 MG TAB PO PRN ×2 (20:34→22:51)
[2017-05-31] MEDS ORDERED: OPTIRAY 320 IV PRN (20:45)
[2017-05-31 22:00] VITALS: BP 134/53; PULSE 110; TEMP 37.1; O2SAT 92
--- NOTE | 2017-05-31 22:14 | DIAGNOSTIC IMAGING REPORT ---
CT ANGIOGRAPHY OF THE CHEST, PULMONARY EMBOLUS PROTOCOL CLINICAL HISTORY: Altered mental status. Recent knee arthroplasty. COMPARISON STUDY: Chest radiograph May 02, 2017. TECHNIQUE: Following IV administration of 93 mL of Optiray-320, helical axial images of the chest were obtained utilizing the pulmonary embolus protocol. Maximal intensity projections and sagittal and coronal reformats were viewed on an independent 3D workstation. IV contrast was administered without complication. A dose lowering technique was utilized adhering to the principles of ALARA. CT DOSE: 575.58 mGycm FINDINGS: Evaluation of the pulmonary arteries is nearly nondiagnostic due to marked motion artifact. The patient was unable to cooperate with this examination. The heart is moderately enlarged. There is no pericardial effusion. Extensive coronary artery calcification is noted. No enlarged thoracic lymph nodes are identified. Evaluation of the lungs is essentially nondiagnostic. There is no lobar consolidation. No pneumothorax or pleural effusion is identified. Bilateral gynecomastia is noted. There are median sternotomy wires and postoperative findings consistent with bypass grafting. Caliber of the thoracic aorta is normal. No abnormalities are identified within visualized portions of the upper abdomen. IMPRESSION: 1. Exam markedly compromised by motion artifact as the patient was unable to cooperate with the exam due to altered mental status. Essentially nondiagnostic evaluation of the chest. 2. Moderate cardiomegaly. Extensive coronary artery calcification. Electronically signed by: Brian Waddell M.D. 05/31/2017 10:12 PM Dictated Date/Time: 05/31/2017 10:03 PM
[2017-05-31 23:48] LABS: CKMB/CK RATIO 0.7 (0-3.0)
[2017-06-01] VITALS (9 sets, daily range): BP systolic 101–128; BP diastolic 56–92; PULSE 81–108; TEMP 36.7–37.3; O2SAT 88–97
[2017-06-01] MEDS: CHECK SCOPOLAMINE PATCH PLACEMENT SCH
[2017-06-01] MEDS: GABAPENTIN 600MG Q6H DOSE PO SCH ×2 (05:52→11:13)
[2017-06-01] MEDS: LEVOTHYROXINE 50 MCG TAB PO SCH (05:52)
[2017-06-01] MEDS: FERROUS GLUCONATE 324 MG TAB PO SCH ×3 (05:59→16:30)
[2017-06-01] MEDS: ACETAMINOPHEN 500 MG TAB PO SCH ×3 (05:59→20:01)
[2017-06-01 06:12] LABS: CKMB/CK RATIO 2.7 (0-3.0)
[2017-06-01] MEDS: THIAMINE HCL 100 MG TAB PO SCH (08:47)
[2017-06-01] MEDS: CARVEDILOL 12.5 MG TAB PO SCH ×2 (08:48→19:57)
[2017-06-01] MEDS: ASPIRIN 325 MG ECTAB PO SCH ×2 (08:48→19:57)
[2017-06-01] MEDS: ATORVASTATIN 40 MG TAB PO SCH (08:48)
[2017-06-01] MEDS: CHOLECALCIFEROL 1000 INTER.UNIT TAB PO SCH (08:49)
[2017-06-01] MEDS: ENALAPRIL MALEATE 10 MG TAB PO SCH (08:49)
[2017-06-01] MEDS: RANITIDINE HCL 150 MG TAB PO SCH ×2 (08:50→19:58)
--- NOTE | 2017-06-01 08:52 | ECHOCARDIOGRAM REPORT ---
*NOTICE TO RECEIVING LIBERTARIAN AGENCY This information is strictly Confidential and protected under [place] law. [place] law prohibits you from making any further disclosure of this information unless further disclosure is expressly permitted by the written consent of the person to whom it pertains or is authorized by law. A general authorization for the release of medical or other information is not sufficient for this purpose. Hospital accepts no responsibility if the information is made available to any other person, INCLUDING THE PATIENT. Interpretation Summary * Name: SHAISTA BROOKE Study Date: 06/01/2017 07:24 AM BP: 108/56 mmHg * [facility] HR: 94 * : 1950 (M/d/yyy) Gender: Male Height: 70 in * Age: 66 yrs Ethnicity: CA Weight: 265 lb * Ordering Physician: Robert Rothman * Referring Physician: Cale Montilla * Performed By: Pamella Kelley RDCS * * Reason For Study: NEW EKG CHANGES * BSA: 2.4 m2 * -- Conclusions -- * Left ventricular systolic function is normal. * The right ventricle is borderline dilated. * The right ventricular systolic function is borderline reduced. * Right ventricular systolic pressure is normal. Procedure Details * A contrast injection of Definity was performed to improve assessment of LV function. * Contrast was injected into an intravenous site in the right arm. * One vial of Definity ultrasound contrast was diluted in normal saline to a total volume of 10 ml. A total of '2' ml of solution was administered during imaging. * Lot # [id number] of Definity utilized for procedure. * Expiration date 1 AUG 13. * The attending nurse who injected the contrast agent was JEREMIE OCONNELL. Left Ventricle * The left ventricle is grossly normal size. * Ejection Fraction = 50-55%. * Left ventricular systolic function is normal. * Diastolic function appears normal. Right Ventricle * The right ventricle is borderline dilated. * The right ventricular systolic function is borderline reduced. * The right ventricular systolic function is reduced as assessed by tricuspid annular plane systolic excursion (TAPSE) (TAPSE <1.6 cm). Atria * The left atrium is not well visualized. * Right atrium not well visualized. Mitral Valve * The mitral valve anatomy is normal. * Significant mitral regurgitation is absent. Tricuspid Valve * The tricuspid valve is not well visualized. * There is trace tricuspid regurgitation. * Right ventricular systolic pressure is normal. Aortic Valve * The aortic valve is trileaflet. * Aortic valve sclerosis mild, without significant aortic valvular stenosis. * No hemodynamically significant valvular aortic stenosis. * There is no significant aortic regurgitation. Great Vessels * The aortic root is normal size. Pericardium/Pleural * There is no pericardial effusion. Great Vessels * Not imaged MMode 2D Measurements and Calculations Ao root diam 3.7 cm Ao root area 10.7 cm\S\2 LVAd ap4 30.8 cm\S\2 LVLd ap4 8.1 cm EDV(MOD-sp4) 92.7 ml EDV(sp4-el) 99.8 ml LVAs ap4 19.1 cm\S\2 LVLs ap4 6.7 cm ESV(MOD-sp4) 43.1 ml ESV(sp4-el) 46.3 ml EF(MOD-sp4) 53.5 % EF(sp4-el) 53.6 % LVAd ap2 29.5 cm\S\2 LVLd ap2 8.4 cm EDV(MOD-sp2) 81.5 ml EDV(sp2-el) 88.0 ml LVAs ap2 18.8 cm\S\2 LVLs ap2 7.3 cm ESV(MOD-sp2) 38.9 ml ESV(sp2-el) 41.5 ml EF(MOD-sp2) 52.3 % EF(sp2-el) 52.9 % LVLd %diff 4.0 % EDV(MOD-bp) 89.7 ml LVLs %diff 7.8 % ESV(MOD-bp) 42.6 ml EF(MOD-bp) 52.6 % SV(MOD-sp4) 49.6 ml SI(MOD-sp4) 21.1 ml/m\S\2 SV(MOD-sp2) 42.6 ml SI(MOD-sp2) 18.1 ml/m\S\2 SV(MOD-bp) 47.2 ml SI(MOD-bp) 20.0 ml/m\S\2 SV(sp4-el) 53.5 ml SI(sp4-el) 22.7 ml/m\S\2 SV(sp2-el) 46.5 ml SI(sp2-el) 19.8 ml/m\S\2 Doppler Measurements and Calculations MV E max heydi 91.7 cm/sec MV A max heydi 74.2 cm/sec MV E/A 1.2 MV dec time 0.17 sec Ao V2 max 99.9 cm/sec Ao max PG 4.0 mmHg Ao max PG (full) 1.0 mmHg LV V1 max PG 2.9 mmHg LV V1 max 85.9 cm/sec TR max heydi 174.8 cm/sec
[2017-06-01] MEDS: DOCUSATE SODIUM/SENNA 50/8.6MG TAB PO SCH ×2 (08:53→19:59)
[2017-06-01] MEDS: PANTOprazole SOD 40 MG TAB PO SCH (08:55)
[2017-06-01] MEDS: MULTIVITAMIN TAB PO SCH (08:55)
--- NOTE | 2017-06-01 09:40 | Cardiology Consultation ---
Cardiology Consultation Date of Consultation: Jun 01, 2017. Pt evaluation today including: conversation w/ patient, physical exam, chart review, lab review, review of inpatient medication list History of Present Illness Mr. Laguerre is a 66 year old male with a past medical history of hypertension, hyperlipidemia, CAD s/p CABG x3 in 2017, and hypothyroidism who was admitted to [facility] for a left total knee replacement with Dr. Montilla on 05/29/17. On 2016, a code giovanny was called as the patient became tremulous, agitated, uncooperative and was hallucinating. The alcohol withdrawal protocol was initiated. Cardiology was consulted due to his EKG changes, namely V3-V6 ST segment depression as well as his elevation in troponin. Today, Mr. Laguerre was asleep and difficult to rouse, therefore I was unable to obtain a full history from him. He awoke briefly, was oriented x3 and denied any pain before falling back asleep. Past Medical/Surgical History PMH: - HTN - Hyperlipidemia - CAD - Hypothyroidism PSH: - Left TKR - Arthroscopy of both knees - CABG x3 at [facility] Social History Smoking Status: Never Smoker History of Alcohol Use: Yes (1-2 COCKTAILS BEFORE BED ) Review of Systems Unable to obtain ROS given patient was difficult to awaken Allergies Coded Allergies: No Known Allergies (Verified , 05/29/17) Medications Current Inpatient Medications Medications (Trade) Dose Ordered Sig/Es Route Start Time Stop Time Status Last Admin Dose Admin Oxycodone HCl (Roxicodone Immediate Rel Tab) 1 TABLET FOR PAIN RATING... Q4H PRN PO 05/29/17 15:45 06/12/17 15:44 Future Hold Acetaminophen (Tylenol Tab) 1,000 mg Q8H PO 05/29/17 22:00 06/28/17 21:59 06/01/17 05:59 1,000 MG Magnesium Hydroxide (Milk Of Magnesia Susp) 30 ml Q6H PRN PO 05/29/17 15:45 06/28/17 15:44 Bisacodyl (Dulcolax Supp) 10 mg DAILY PRN SC 05/29/17 15:45 06/28/17 15:44 Al Hydrox/Mg Hydrox/Simethicone (Maalox Max Susp) 15 ml Q4H PRN PO 05/29/17 15:45 06/28/17 15:44 Zolpidem Tartrate (Ambien Tab) 5 mg HSZ PRN PO 05/29/17 15:45 06/28/17 15:44 Multivitamins (Multivitamin Tab) 1 tab QAM PO 05/30/17 09:00 06/29/17 08:59 06/01/17 08:55 1 TAB Ondansetron HCl (Zofran Inj) 4 mg Q6H PRN IV 05/29/17 15:45 06/28/17 15:44 Metoclopramide HCl (Reglan Inj) 10 mg Q6H PRN IV 05/29/17 15:45 06/28/17 15:44 Ferrous Gluconate (Ferrous Gluconate Tab) 324 mg TIDM PO 05/29/17 17:45 06/28/17 17:59 06/01/17 05:59 324 MG Pantoprazole Sodium (Protonix Tab) 40 mg QAM PO 05/30/17 09:00 06/29/17 08:59 06/01/17 08:55 40 MG Silver Sulfadiazine (Silvadene 1% Crm 50GM Jar) 1 appln BID PRN EXT 05/29/17 15:45 06/28/17 15:44 Aspirin (Ecotrin Tab) 325 mg BID PO 05/29/17 21:00 06/28/17 20:59 06/01/17 08:48 325 MG Tamsulosin HCl (Flomax Cap) 0.4 mg QAM PRN PO 05/29/17 15:45 06/28/17 15:44 Atorvastatin Calcium (Lipitor Tab) 40 mg QAM PO 05/30/17 09:00 06/29/17 08:59 06/01/17 08:48 40 MG Carvedilol (Coreg Tab) 12.5 mg BID PO 05/29/17 21:00 06/28/17 20:59 06/01/17 08:48 12.5 MG Enalapril Maleate (Vasotec Tab) 10 mg QAM PO 05/30/17 09:00 06/29/17 08:59 06/01/17 08:49 10 MG Levothyroxine Sodium (Synthroid Tab) 50 mcg DAILYBB PO 05/30/17 06:00 06/29/17 05:59 06/01/17 05:52 50 MCG Nitroglycerin (Nitrostat Tab) 0.4 mg Q5M PRN UT 05/29/17 15:45 06/28/17 15:44 Senna/Docusate Sodium (Senokot S Tab) 1 tab BID PO 05/29/17 21:00 06/28/17 20:59 06/01/17 08:53 1 TAB Cholecalciferol (Vitamin D Tab) 5,000 inter.unit DAILY PO 05/30/17 09:00 06/29/17 08:59 06/01/17 08:49 5,000 INTER.UNIT Ranitidine HCl (zANTac TAB) 300 mg BID PO 05/29/17 21:00 06/28/17 20:59 06/01/17 08:50 300 MG Thiamine HCl (Vitamin B-1 Tab) 100 mg QAM PO 06/01/17 09:00 07/01/17 08:59 06/01/17 08:47 100 MG Folic Acid (Folvite Tab) 1 mg QAM PO 06/01/17 09:00 07/01/17 08:59 06/01/17 08:47 1 MG Lorazepam (Ativan Tab) PRN Dosing -Active Protocol UD PRN PO 05/31/17 19:00 06/30/17 18:59 05/31/17 22:51 2 MG Gabapentin (Neurontin Tab) 600 mg Q6H PO 06/01/17 06:00 06/01/17 12:01 06/01/17 05:52 600 MG Gabapentin (Neurontin Tab) 600 mg Q8H PO 06/01/17 22:00 06/02/17 14:01 Gabapentin (Neurontin Tab) 600 mg Q12H PO 06/03/17 00:00 06/03/17 12:01 Gabapentin (Neurontin Tab) 600 mg Q24H PO 06/04/17 12:00 06/04/17 12:01 Ioversol (Optiray 320) 100 ml UD PRN IV 05/31/17 20:45 06/04/17 20:44 Physical Exam Vital Signs Past 12 Hours Date Time Temp Pulse Resp B/P (MAP) Pulse Ox O2 Delivery O2 Flow Rate FiO2 06/01/17 04:00 37.2 94 20 108/56 (73) 97 Nasal Cannula 2.0 06/01/17 04:00 Nasal Cannula 2.0 06/01/17 00:00 37.3 108 24 120/92 (101) 88 Room Air 06/01/17 00:00 Nasal Cannula 2.0 05/31/17 22:00 37.1 110 22 134/53 (80) 92 Room Air Head: normocephalic, atraumatic Neck: supple Lungs: Respiratory effort: no dyspnea, good air movement Auscultation: breath sounds normal, CTA except as noted, no wheezing, no rales/crackles, no rhonchi Cardiovascular: Apical Impulse: not displaced Heart Auscultation: RRR, normal S1, normal S2, no murmurs, no rubs, no gallops Peripheral Pulses: Radial Pulse: normal on the left, normal on the right Data Laboratory Results: Last 24 Hours Test 05/31/17 19:07 05/31/17 19:16 05/31/17 22:56 06/01/17 05:18 White Blood Count 12.32 K/uL Red Blood Count 3.27 M/uL Hemoglobin 10.5 g/dL Hematocrit 30.3 % Mean Corpuscular Volume 92.7 fL Mean Corpuscular Hemoglobin 32.1 pg Mean Corpuscular Hemoglobin Concent 34.7 g/dl Platelet Count 139 K/uL Mean Platelet Volume 10.2 fL Neutrophils (%) (Auto) 70.2 % Lymphocytes (%) (Auto) 13.0 % Monocytes (%) (Auto) 15.7 % Eosinophils (%) (Auto) 0.6 % Basophils (%) (Auto) 0.2 % Neutrophils # (Auto) 8.66 K/uL Lymphocytes # (Auto) 1.60 K/uL Monocytes # (Auto) 1.93 K/uL Eosinophils # (Auto) 0.07 K/uL Basophils # (Auto) 0.02 K/uL RDW Standard Deviation 49.8 fL RDW Coefficient of Variation 14.5 % Immature Granulocyte % (Auto) 0.3 % Immature Granulocyte # (Auto) 0.04 K/uL Prothrombin Time 10.5 SECONDS Prothromb Time International Ratio 1.0 Activated Partial Thromboplast Time 32.9 SECONDS Partial Thromboplastin Ratio 1.3 D-Dimer 5790 ug/L FEU Sodium Level 134 mmol/L Potassium Level 3.8 mmol/L Chloride Level 105 mmol/L Carbon Dioxide Level 26 mmol/L Anion Gap 3.0 mmol/L Blood Urea Nitrogen 19 mg/dl Creatinine 1.32 mg/dl Est Creatinine Clear Calc Drug Dose 70.6 ml/min Estimated GFR () 64.2 Estimated GFR (Non- 55.4 BUN/Creatinine Ratio 14.2 Random Glucose 119 mg/dl Calcium Level 8.9 mg/dl Total Bilirubin 0.9 mg/dl Direct Bilirubin 0.2 mg/dl Aspartate Amino Transf (AST/SGOT) 33 U/L Alanine Aminotransferase (ALT/SGPT) 23 U/L Alkaline Phosphatase 62 U/L Creatine Kinase MB 3.1 ng/ml 2.7 ng/ml 8.8 ng/ml Troponin I 0.825 ng/ml 0.662 ng/ml 2.130 ng/ml Total Protein 6.6 gm/dl Albumin 3.1 gm/dl Globulin 3.5 gm/dl Albumin/Globulin Ratio 0.9 Vitamin B12 Level 471 pg/mL Folate 5.43 ng/mL Thyroid Stimulating Hormone (TSH) 2.640 uIu/ml Creatine Kinase MB Ratio 0.7 2.7 Total Creatine Kinase 384 U/L 332 U/L Ammonia 16.0 umol/L Test 06/01/17 08:52 Imaging: CXR - mild cardiomegaly CTA - nondiagnostic given motion artifact, but showed extensive coronary artery calcification EKG: Sinus rhythm at [address] inversions in lateral lead compared to his baseline EKG Assessment & Plan Mr. Laguerre is a 66 year old male with a past medical history of hypertension, hyperlipidemia, CAD s/p CABG x3 in 2017, and hypothyroidism who was admitted to [facility] for a left total knee replacement with Dr. Montilla on 05/29/17, and subsequently went into alcohol withdrawal, with EKG changes and an elevated troponin. Troponin Elevation - troponin increased from 0.662 to 2.13, will continue to trend - ECHO did not show any new wall motion abnormality - elevated troponin and CKMB represent myocardial injury, likely due to supply/ demand mismatch in the setting of his acute agitation and alcohol withdrawal - would benefit from perfusion scan, possibly on Sunday, to determine the etiology - plaque rupture vs. occlusion/migration of graft - continue current medical management - anticoagulation not warranted - low suspicion for PE given absence of hypoxia & chest pain Hypertension - continue carvedilol and enalapril - may benefit from an increase in carvedilol in the future Hyperlipidemia - continue atorvastatin ATTENDING NOTE: Personal and saw and examined Mr. Jose Roberto Laguerre independently this morning. I agree with the assessment and plan noted above. Briefly, the patient is a 66-year-old gentleman with an extensive history of cardiac disease who underwent elective knee operation several days ago. The postoperative period he developed signs and symptoms consistent with acute alcohol withdrawal. During his evaluation last evening he did undergo an EKG evaluation which suggested ischemic changes. More recently he has evidence of myocardial injury demonstrated on laboratory exam. Unfortunately, the patient is not able to provide any history at this point as he is sedated. Reviewed his records suggest that prior to his recent revascularization he had significant angina. There is no symptom of chest pain reported during his events of the last 24 hours. His baseline EKG has some abnormalities which are slightly worse on his more recent evaluations. He has some elevation in cardiac troponin but no significant elevation in his cardiac MB fraction. His echocardiogram did not demonstrate any new wall motion abnormalities. I think the most likely mechanism of his event was a supply demand mismatch. I doubt that he had a plaque rupture event given his recent revascularization and absence of more significant objective findings. His catheterization report in operative intervention suggests that he may have some territories of poor perfusion along the lateral wall there were not revascularized. This would involve a very diminutive circumflex system which was not grafted. As such, I think the primary treatment at this point is supportive. Continuing good oxygenation, maintaining a good hemoglobin level, continuing him on beta- blockers and perhaps increasing this dose as well as daily aspirin would be beneficial. Monitoring his blood pressure closely and avoiding significant hypertension and tachycardia would also be advisable. Once he is less sedated we will have an opportunity to assess symptoms. Most likely prior to discharge she a cardiac perfusion study would provide some evaluation of his coronary disease and allow us to determine if any invasive evaluation is warranted prior to discharge Resident Tracking Resident Involvement: Resident Care Provided Care Provided: Adult [facility] Medicine
[2017-06-01 10:01] LABS: VEN BLOOD GAS BASE EXCESS -0.2 mEq/L
[2017-06-01 11:47] LABS: BENZODIAZEPINE, URINE POS (NEG); COCAINE,URINE NEG (NEG); PHENCYCLIDINE, URINE NEG (NEG)
--- NOTE | 2017-06-01 12:12 | PROGRESS NOTE ---
DATE: 06/01/2017 SUBJECTIVE: A 66-year-old gentleman postop day 3 from a left total knee replacement. He got confused yesterday afternoon and was pretty belligerent and combative last evening. We were planning on sending him home yesterday, but he developed this altered behavior status. He has now been transferred to the ICU for management. He was pretty belligerent all night and then sleeping most of the morning, but he woke well for me this morning. He denies any significant knee pain. He is alert and oriented and following commands. He denies any chest pain or shortness of breath. OBJECTIVE: VITAL SIGNS: Temperature is 36.9. Vital signs stable. PHYSICAL EXAMINATION: GENERAL: Physical examination reveals an elderly male. He still seems a bit agitated. EXTREMITIES: Examination of the left lower extremity reveals the wound to be clean, dry and intact. Fairly mild swelling. He can dorsiflex and plantarflex his foot appropriately. He can do a good straight leg raise. LABORATORY DATA: Hemoglobin last evening was 10.5. Hematocrit 30.3. Electrolytes are stable. His troponin level is elevated and elevated D-dimer. IMAGING: he did have a CT scan of his head, which showed no signs of bleed or stroke or trauma. Chest CT was negative for pulmonary emboli. Quality is limited due to motion artifact. ASSESSMENT: A 66-year-old gentleman postop day 3 from a left total knee replacement complicated by some agitation. It was felt that this could be related to alcohol withdrawal. He has been medicated and was pretty sedated most of the morning, but seems to be doing better now. He is awake, alert and seems more appropriate. He does have elevated troponin suggestive of at least some degree of ischemia. He has been evaluated by cardiology. He denies any significant knee or chest pain or cardiac symptoms. PLAN: 1. DVT prophylaxis including thigh-high TEDs, SCDs, and aspirin. 2. PT and OT. We will resume therapy once he is medically stable. 3. Pain control. We are going to limit all pain medicines other than just Tylenol for now to avoid confusion issues. 4. Medical management as per the medicine and cardiology team. I will leave it up to their discretion as far as further medical management of this gentleman. He seems to be stabilizing and improving. 5. Disposition: He will likely be discharged to home once medically stable and recovered. This certainly has been a setback with his most recent event yesterday.
[2017-06-01] MEDS: GABAPENTIN 600MG Q8H DOSE PO SCH (19:58)
[2017-06-02 00:30] VITALS: BP 110/64; PULSE 81; TEMP 36.8; O2SAT 90
[2017-06-02 00:31] VITALS: O2SAT 92
[2017-06-02 04:09] VITALS: BP 103/67; PULSE 79; TEMP 36.8; O2SAT 90
[2017-06-02] MEDS: LEVOTHYROXINE 50 MCG TAB PO SCH (05:40)
[2017-06-02] MEDS: GABAPENTIN 600MG Q8H DOSE PO SCH ×2 (05:40→13:07)
[2017-06-02] MEDS: ACETAMINOPHEN 500 MG TAB PO SCH (06:51)
[2017-06-02] MEDS: FERROUS GLUCONATE 324 MG TAB PO SCH ×2 (07:15→10:33)
[2017-06-02 07:34] VITALS: BP 122/75; PULSE 88; TEMP 36.8; O2SAT 94
[2017-06-02] MEDS: ENALAPRIL MALEATE 10 MG TAB PO SCH (08:08)
[2017-06-02] MEDS: CARVEDILOL 12.5 MG TAB PO SCH (08:09)
[2017-06-02] MEDS: PANTOprazole SOD 40 MG TAB PO SCH (08:09)
[2017-06-02] MEDS: MULTIVITAMIN TAB PO SCH (08:09)
[2017-06-02] MEDS: RANITIDINE HCL 150 MG TAB PO SCH (08:09)
[2017-06-02] MEDS: THIAMINE HCL 100 MG TAB PO SCH (08:09)
[2017-06-02] MEDS: ATORVASTATIN 40 MG TAB PO SCH (08:09)
--- NOTE | 2017-06-02 08:09 | PROGRESS NOTE ---
DATE: 06/02/2017 SUBJECTIVE: A 66-year-old gentleman postop day 4 from a total knee replacement. This is complicated by some confusion and mental status changes which has now resolved. He is still in the ICU. He is awake, alert, completely appropriate. He denies any fever or knee pain. No chest pain or shortness of breath. Not feeling dizzy or lightheaded. OBJECTIVE: VITAL SIGNS: Temperature 36.8. Vital signs stable. GENERAL: Reveals a pleasant elderly male. He is sitting up in his bedside chair and looks comfortable. EXTREMITIES: Examination of the left leg reveals just a little bit of bloody drainage at the inferior aspect of his wound. Some moderate swelling. He can dorsiflex and plantarflex his foot appropriately. He is neurologically intact. LABORATORY DATA: Troponins is still elevated but coming down to 1.9. ASSESSMENT: A 66-year-old gentleman postop day 4 from left total knee replacement with postoperative confusion and elevated troponin levels. Clinically, he looks great. He does not have any pain. He denies any cardiac symptoms and looks at baseline. PLAN: 1. DVT prophylaxis including thigh TEDs, SCDs, and aspirin twice a day. 2. PT/OT. He can weightbear as tolerated. Left total knee protocol. 3. Pain control. Doing well with current pain regimen. We should really limit pain meds to avoid confusion. We will stick to Tylenol as much as possible. 4. Medical management as per the medicine and cardiology services. The significance of this elevated troponin is a little unclear to me based on his lack of symptoms. I leave it up to their discretion as far as management of that. 5. Disposition: He is planning to be discharged home and do outpatient therapy once medically stable. He is orthopedically stable to be discharged at any time medically okay. Any orthopedic questions can be directed to me at [phone].
[2017-06-02] MEDS: CHOLECALCIFEROL 1000 INTER.UNIT TAB PO SCH (08:10)
[2017-06-02] MEDS: DOCUSATE SODIUM/SENNA 50/8.6MG TAB PO SCH (08:10)
[2017-06-02] MEDS: ASPIRIN 325 MG ECTAB PO SCH (08:11)
--- NOTE | 2017-06-02 09:35 | Progress Note ---
Subjective Date of Service: Jun 02, 2017. Subjective Pt evaluation today including: conversation w/ patient, physical exam, chart review, lab review 66 yo male who is in the hospital for Left Total knee arthroplasty. Patient was consulted to medicine for alcohol withdrawal and patient is also seeing Cardiology for elevated troponin and EKG changes. History was difficult to obtain yesterday as patient was very drowsy. Today he is awake and denies having any chest pain during his stay. Patient reports feeling well and would like to be discharged. Review of Systems Constitutional: No fever, No chills Respiratory: No cough, No sputum Cardiac: No chest pain Abdomen: No pain, No nausea Psychiatric: No anhedonism Skin: No rash, No itch All Other Systems: Reviewed and Negative Medications Current Inpatient Medications Medications (Trade) Dose Ordered Sig/Es Route Start Time Stop Time Status Last Admin Dose Admin Oxycodone HCl (Roxicodone Immediate Rel Tab) 1 TABLET FOR PAIN RATING... Q4H PRN PO 05/29/17 15:45 06/12/17 15:44 Future Hold Acetaminophen (Tylenol Tab) 1,000 mg Q8H PO 05/29/17 22:00 06/28/17 21:59 06/02/17 06:51 1,000 MG Magnesium Hydroxide (Milk Of Magnesia Susp) 30 ml Q6H PRN PO 05/29/17 15:45 06/28/17 15:44 Bisacodyl (Dulcolax Supp) 10 mg DAILY PRN [place] 05/29/17 15:45 06/28/17 15:44 Al Hydrox/Mg Hydrox/Simethicone (Maalox Max Susp) 15 ml Q4H PRN PO 05/29/17 15:45 06/28/17 15:44 Zolpidem Tartrate (Ambien Tab) 5 mg HSZ PRN PO 05/29/17 15:45 06/28/17 15:44 Multivitamins (Multivitamin Tab) 1 tab QAM PO 05/30/17 09:00 06/29/17 08:59 06/02/17 08:09 1 TAB Ondansetron HCl (Zofran Inj) 4 mg Q6H PRN IV 05/29/17 15:45 06/28/17 15:44 Metoclopramide HCl (Reglan Inj) 10 mg Q6H PRN IV 05/29/17 15:45 06/28/17 15:44 Ferrous Gluconate (Ferrous Gluconate Tab) 324 mg TIDM PO 05/29/17 17:45 06/28/17 17:59 06/01/17 11:13 324 MG Pantoprazole Sodium (Protonix Tab) 40 mg QAM PO 05/30/17 09:00 06/29/17 08:59 06/02/17 08:09 40 MG Silver Sulfadiazine (Silvadene 1% Crm 50GM Jar) 1 appln BID PRN EXT 05/29/17 15:45 06/28/17 15:44 Aspirin (Ecotrin Tab) 325 mg BID PO 05/29/17 21:00 06/28/17 20:59 06/02/17 08:11 325 MG Tamsulosin HCl (Flomax Cap) 0.4 mg QAM PRN PO 05/29/17 15:45 06/28/17 15:44 Atorvastatin Calcium (Lipitor Tab) 40 mg QAM PO 05/30/17 09:00 06/29/17 08:59 06/02/17 08:09 40 MG Carvedilol (Coreg Tab) 12.5 mg BID PO 05/29/17 21:00 06/28/17 20:59 06/02/17 08:09 12.5 MG Enalapril Maleate (Vasotec Tab) 10 mg QAM PO 05/30/17 09:00 06/29/17 08:59 06/02/17 08:08 10 MG Levothyroxine Sodium (Synthroid Tab) 50 mcg DAILYBB PO 05/30/17 06:00 06/29/17 05:59 06/02/17 05:40 50 MCG Nitroglycerin (Nitrostat Tab) 0.4 mg Q5M PRN UT 05/29/17 15:45 06/28/17 15:44 Senna/Docusate Sodium (Senokot S Tab) 1 tab BID PO 05/29/17 21:00 06/28/17 20:59 06/01/17 19:59 1 TAB Cholecalciferol (Vitamin D Tab) 5,000 inter.unit DAILY PO 05/30/17 09:00 06/29/17 08:59 06/02/17 08:10 5,000 INTER.UNIT Ranitidine HCl (zANTac TAB) 300 mg BID PO 05/29/17 21:00 06/28/17 20:59 06/02/17 08:09 300 MG Thiamine HCl (Vitamin B-1 Tab) 100 mg QAM PO 06/01/17 09:00 07/01/17 08:59 06/02/17 08:09 100 MG Folic Acid (Folvite Tab) 1 mg QAM PO 06/01/17 09:00 07/01/17 08:59 06/02/17 08:11 1 MG Lorazepam (Ativan Tab) PRN Dosing -Active Protocol UD PRN PO 05/31/17 19:00 06/30/17 18:59 05/31/17 22:51 2 MG Gabapentin (Neurontin Tab) 600 mg Q8H PO 06/01/17 22:00 06/02/17 14:01 06/02/17 05:40 600 MG Gabapentin (Neurontin Tab) 600 mg Q12H PO 06/03/17 00:00 06/03/17 12:01 Gabapentin (Neurontin Tab) 600 mg Q24H PO 06/04/17 12:00 06/04/17 12:01 Ioversol (Optiray 320) 100 ml UD PRN IV 05/31/17 20:45 06/04/17 20:44 Objective Vital Signs Date Time Temp Pulse Resp B/P (MAP) Pulse Ox O2 Delivery O2 Flow Rate FiO2 06/02/17 07:38 Room Air 06/02/17 07:34 36.8 88 16 122/75 (91) 94 Room Air 06/02/17 04:09 36.8 79 16 103/67 (79) 90 Room Air 06/02/17 00:31 92 Room Air 06/02/17 00:30 36.8 81 17 110/64 (79) 90 Room Air 06/01/17 20:04 92 Room Air 06/01/17 19:54 36.7 92 23 106/65 (79) 91 Room Air 06/01/17 16:23 36.7 85 16 101/60 (74) 97 Room Air 06/01/17 16:00 97 Nasal Cannula 2.0 06/01/17 12:00 97 Nasal Cannula 2.0 06/01/17 12:00 36.9 88 16 128/62 (84) 92 Room Air 06/01/17 09:50 36.9 81 20 104/63 (77) 96 Room Air Physical Exam General Appearance: WD/WN, no apparent distress Neck: supple, no adenopathy Respiratory/Chest: chest non-tender, lungs clear, no respiratory distress Cardiovascular: regular rate, rhythm, no edema, no murmur Abdomen: normal bowel sounds, non tender, soft Extremities: normal range of motion, non-tender, + pertinent finding (left knee and leg wrapped) Neurologic/Psychiatric: no motor/sensory deficits Skin: normal color Lymphatic: no adenopathy Laboratory Results Last 24 Hours Test 06/01/17 09:50 06/01/17 11:05 06/01/17 11:45 06/01/17 21:55 Venous Blood pH 7.36 Venous Blood Partial Pressure CO2 46 mmHg Venous Blood Partial Pressure O2 50 mmHg Venous Blood HCO3 26 mmol/L Venous Blood Oxygen Saturation 83.0 % Venous Blood Base Excess -0.2 mEq/L Urine Opiates Screen NEG Urine Methadone, Qualitative NEG Urine Barbiturates NEG Urine Phencyclidine (PCP) Level NEG Ur Amphetamine/Methamphetamine NEG MDMA (Ecstasy) Screen NEG Urine Benzodiazepines Screen POS Urine Cocaine Metabolite NEG Urine Marijuana (THC) NEG Troponin I 2.840 ng/ml 1.920 ng/ml Assessment and Plan 66 yo male hospitalized with left total knee arthroplasty. Patient was consulted with medicine for alcohol withdrawal. And by cardio for elevated troponin. In regards to his alcohol withdrawal, patient no longer appears to be symptomatic. Has not required lorazepam since last night. Appears to be stable. In regards to his elevated trop. likely a class 2 AR from demand iischemia. 2D echo was normal. Cardio recommended perfusion study. D/W Dr. Brothers, may have this study as an outpatient. Informed Dr. Montilla, would like physical therapy prior to discharge. Will also consult nurse navigator to schedule cardiac perfusion study as an outpatient. Discharge planning: home
[2017-06-02 11:10] VITALS: BP 101/69; PULSE 78; TEMP 36.8; O2SAT 94
[2017-06-02 12:58] VITALS: BP 101/69; PULSE 78; TEMP 36.8; O2SAT 94
[2017-06-03] MEDS ORDERED: GABAPENTIN 600MG Q12H DOSE PO SCH
[2017-06-03 22:24] LABS: HYDROXYETHYLFLURAZEPAM CONF NEGATIVE NG/ML (CUTOFF=50); HYDROXYMIDAZOLAM 151 NG/ML (CUTOFF=50); HYDROXYTRIAZOLAM CONF NEGATIVE NG/ML (CUTOFF=50); TEMAZEPAM CONF NEGATIVE NG/ML (CUTOFF=50)
[2017-06-04] MEDS ORDERED: GABAPENTIN 600MG X1 DOSE PO SCH (12:00)
== END 2017-06-02 13:57 | disposition home health service (06) | DRG 469 ==
LOC: C.ACU 10:10 → C.3E 15:37 → ENRESERV 16:33 → C.MSICU 05-31 20:10
PROVIDERS: ADMIT Orthopaedic Surgery Sports Medicine; ATTEND Orthopaedic Surgery Sports Medicine
PROC: 0SRD0J9 Replacement of Left Knee Joint with Synthetic Substitute, Cemented, Open Approach (ICD-10-PCS; principal; 2017-05-29 12:50)
DX: M17.12 Unilateral primary osteoarthritis, left knee (principal); I21.A1 Myocardial infarction type 2; F10.239 Alcohol dependence with withdrawal, unspecified; I10 Essential (primary) hypertension; E78.00 Pure hypercholesterolemia, unspecified; I25.10 Atherosclerotic heart disease of native coronary artery without angina pectoris; Z95.1 Presence of aortocoronary bypass graft; E03.9 Hypothyroidism, unspecified; Z79.82 Long term (current) use of aspirin; E78.5 Hyperlipidemia, unspecified